=== PATIENT | female | born 1995 | race African-American/Black ===

== ENCOUNTER 2019-09-16 18:37 | Outpatient (CLI) | payer MEDICAID ==
[2019-09-16 19:19] VITALS: BP 96/60
[2019-09-16] MEDS ORDERED: LACTATED RINGERS 500 ML IV ONE (19:30)
== END 2019-09-16 19:33 | disposition home or self-care (01) ==
LOC: TRG 18:37
PROVIDERS: ATTEND Obstetrics & Gynecology
DX: O36.8120 Decreased fetal movements, second trimester, not applicable or unspecified (principal); O47.02 False labor before 37 completed weeks of gestation, second trimester; Z3A.23 23 weeks gestation of pregnancy
CPT/HCPCS: 99212; G0463

== ENCOUNTER 2019-10-27 13:30 | Outpatient (CLI) | payer MEDICAID ==
[2019-10-27 14:48] VITALS: BP 105/56
[2019-10-27] MEDS ORDERED: LACTATED RINGERS 1,000 ML ONE (15:08)
[2019-10-27] MEDS ORDERED: LACTATED RINGERS 1,000 ML IV ONE (15:20)
[2019-10-27 16:14] LABS: Hematocrit 32.1 % (30.3-42.9); Hemoglobin 10.9 gm/dl (10.1-14.3); Mean Corpuscular HGB Conc 34 % (30-34); Mean Corpuscular Volume 92 fl (79-97); Platelet Count 278 K/mm3 (140-440); Red Cell Distribution Width 12.2 % (13.2-15.2)
[2019-10-27 16:15] LABS: Bilirubin,Urine NEG (Negative); Blood,Urine NEG (Negative); Color,Urine Straw (Yellow); Protein,Urine <15 mg/dL mg/dL (Negative); RBC,Urine < 1.0 /HPF (0.0-6.0); Urobilinogen,Urine < 2.0 mg/dL (<2.0); WBC,Urine < 1.0 /HPF (0.0-6.0)
[2019-10-27 16:21] LABS: Amphetamine Screen,Urine PRESUMPTIVE NEGATIVE; Benzodiazepines Screen,Urine PRESUMPTIVE NEGATIVE; Cannabinoid Screen,Urine PRESUMPTIVE NEGATIVE; Cocaine Screen,Urine PRESUMPTIVE NEGATIVE; Methadone Screen,Urine PRESUMPTIVE NEGATIVE; Opiate Screen,Urine PRESUMPTIVE NEGATIVE
[2019-10-27 16:31] LABS: Alanine Aminotransferase 12 units/L (7-56); Albumin 3.5 g/dL (3.9-5); BUN/Creatinine Ratio 20; Blood Urea Nitrogen 6 mg/dL (7-17); Calcium 8.9 mg/dL (8.4-10.2); Hemolysis Index 15
[2019-10-27] MEDS ORDERED: LACTATED RINGERS 500 ML IV ONE (17:06)
[2019-10-27] MEDS: TERBUTALINE 1 MG/1 ML INJ SUB-Q SCH ×3 (17:30→18:25)
--- NOTE | 2019-10-27 18:28 | Ultrasound Report ---
ULTRASOUND BIOPHYSICAL PROFILE INDICATION / CLINICAL INFORMATION: BPP. COMPARISON: None available. FINDINGS: BREATHING MOVEMENT = 2 GROSS BODY MOVEMENT = 2 TONE = 2 QUALITATIVE AMNIOTIC FLUID VOLUME = 2 TOTAL BIOPHYSICAL SCORE = 8/8 BPD = 7.8 cm = 31 weeks, 2 day(s). Head circumference = 28.9 cm = 31 weeks, 6 day(s). Abdominal circumference = 24.8 cm = 29 weeks, 0 day(s). Femur length = 5.3 cm = 28 weeks, 0 day(s). Overall estimated sonographic age = 30 weeks, 0 day(s). heart rate is 144 beats per minute. Estimated weight is 1334 grams position is cephalic. Cervix appears closed. movement is present. Placenta is anterior and grade 1 . Amniotic fluid volume appears normal. Amniotic fluid index measures 10.4 cm IMPRESSION: 1. biophysical profile = 8/8 2. Estimated sonographic age of 30 weeks and 0 days. Signer Name: Gonzalo Richard MD Signed: 10/27/2019 6:23 PM Workstation Name: [id number]
== END 2019-10-27 19:33 | disposition home or self-care (01) ==
LOC: TRG 13:30
PROVIDERS: ATTEND Obstetrics & Gynecology
DX: O21.2 Late vomiting of pregnancy (principal); O26.893 Other specified pregnancy related conditions, third trimester; R51 Headache; O47.03 False labor before 37 completed weeks of gestation, third trimester; O99.013 Anemia complicating pregnancy, third trimester; D64.9 Anemia, unspecified; Z3A.29 29 weeks gestation of pregnancy
CPT/HCPCS: 36415; 76816; 76819; 80053; 80307; 81001; 85027; 87086; 96372; J3105; J7120

== ENCOUNTER 2019-10-28 14:40 | Inpatient (IN) | payer MEDICAID ==
[2019-10-28] MEDS ORDERED: NIFEdipine*For Tocolysis only* 10 MG CAPSULE PO ONE (17:00)
[2019-10-28] MEDS ORDERED: LACTATED RINGERS 500 ML IV ONE (17:00)
[2019-10-28] MEDS: LACTATED RINGERS 1,000 ML IV SCH (18:22)
--- NOTE | 2019-10-28 19:09 | History and Physical Report ---
History of Present Illness Date of examination: 10/28/19 Date of admission: 10/28/19 16:33 Chief complaint: Contractions History of present illness: 24 year old presents to L&D complaining of contractions. Patient denies leaking of fluid or vaginal bleeding. Patient reports active movement. Patient denies falls or abdominal trauma. Patient states she last had sexual intercourse 3 days ago. Patient denies any vaginal discharge or exposure to STDs. Patient denies urinary symptoms or back or flank pain. Patient was admitted by Dr. Plunkett for observation due to contractions. All orders and management of patient per Dr. Plunkett. Patient states she receives care at [facility]. No records available in L&D. Patient states her EDC is 01/10/20. Patient received IV hydration and oral Procardia and contractions have spaced. Nurse checked patient in triage and states she is 1 cm dilated and 50 percent effaced and presenting part is high. Dr. Plunkett aware of + FFN (but patient had cervical exam in triage yesterday less than 24 hours from time this FFN was done). Per Dr. Plunkett orders, patient is to receive Procardia every 6 hours as needed for contractions, have fetus and uterine activity monitored continuously, and have cervical exam again tomorrow morning. Past History Past Medical History: no pertinent history Past Surgical History: no surgical history [employer] History: chlamydia (history of chlamydia prior to , treated and cured). denies: abnormal PAP smear, gonorrhea, hepatitis B, hepatitis C, herpes, HIV, syphilis, trichomonas Family/Genetic History: none Social history: single, full code, other (denies abuse). denies: smoking, alcohol abuse, prescription drug abuse, IV drug use - Obstetrical History Expected Date of Delivery: 01/10/20 Actual Gestation: 29 Week(s) 3 Day(s) : 2 Para: 0 Hx # Term Pregnancies: 0 Number of Pregnancies: 0 Spontaneous Abortions: 1 Induced : 0 Number of Living Children: 0 Medications and Allergies Allergies Allergy/AdvReac Type Severity Reaction Status Date / Time No Known Allergies Allergy Unverified 11/05/15 01:04 Home Medications Medication Instructions Recorded Confirmed Last Taken Type Vitamin 1 tab PO DAILY MDD 1 09/16/19 10/28/19 10/28/19 08:00 History 1 Ferrous Sulfate [Feosol 325 MG tab] 325 mg PO QDAY 10/28/19 10/28/19 10/28/19 08:00 History 325 mg Active Meds: Active Medications Lactated Ringer's (Lactated Ringers) 1,000 mls @ 125 mls/hr IV DIRECT JOHN Last Admin: 10/28/19 18:22 Dose: 125 mls/hr Documented by: Review of Systems All systems: negative (contractions) - Vital Signs Vital signs: Vital Signs Pulse Pulse Ox 86 97 10/28/19 17:23 10/28/19 17:23 Temp Pulse Resp BP Pulse Ox 102 H 96 10/28/19 19:00 10/28/19 19:00 - Physical Exam Abdomen: Positive: normal appearance, soft. Negative: distention, tenderness, guarding, rigidity Uterus: Positive: enlarged (S=D). Negative: tender Extremities: Positive: normal. Negative: tenderness, edema - Obstetrical FHR: category 1 FHR comments: AGA Uterine Contraction Monitor Mode: External Cervical Dilatation: 1 (Exam by RN upon admission) Cervical Effacement Percentage: 50 station: -3 Uterine Contraction Pattern: Irregular Uterine Contraction Intensity: Mild Results All other labs normal. Assessment and Plan A: at 29 weeks, 3 days gestation. contractions. P: Patient was admitted by Dr. Plunkett for observation. All orders and management to be per MD due to gestation. Per MD, Procardia 10 mg po every 6 hours as needed for contractions and recheck cervix tomorrow morning. Continuous EFM.
[2019-10-28] MEDS: NIFEdipine*For Tocolysis only* 10 MG CAPSULE PO PRN (23:39)
[2019-10-29] MEDS ORDERED: ACETAMINOPHEN 325 MG TAB PO ONE (05:15)
[2019-10-29] MEDS: NIFEdipine*For Tocolysis only* 10 MG CAPSULE PO PRN (05:36)
[2019-10-29] MEDS: LACTATED RINGERS 1,000 ML IV SCH (10:35)
[2019-10-29] MEDS ORDERED: MAGNESIUM SULFATE 4 GM/100 ML BAG IV ONE (12:24)
[2019-10-29] MEDS ORDERED: MAGNESIUM SULFATE 40GM/1000ML 40 GM/1,000 ML BAG IV SCH ×2 (13:00→15:00)
--- NOTE | 2019-10-29 13:03 | Consultation ---
History of Present Illness Consult date: 10/29/19 History of present illness: the patient is @ 29.4 weeks admitted iwth PTC now have stopped but patietn is 1-2 cm dilated Past History Past Medical History: no pertinent history Past Surgical History: no surgical history [employer] History: chlamydia (history of chlamydia prior to , treated and cured). denies: abnormal PAP smear, gonorrhea, hepatitis B, hepatitis C, her pes, HIV, syphilis, trichomonas Family/Genetic History: none - Obstetrical History : 2 Medications and Allergies Allergies Allergy/AdvReac Type Severity Reaction Status Date / Time No Known Allergies Allergy Unverified 11/05/15 01:04 Home Medications Medication Instructions Recorded Confirmed Last Taken Type Vitamin 1 tab PO DAILY MDD 1 09/16/19 10/28/19 10/28/19 08:00 History 1 Ferrous Sulfate [Feosol 325 MG tab] 325 mg PO QDAY 10/28/19 10/28/19 10/28/19 08:00 History 325 mg Active Meds: Active Medications Betamethasone Acet/Betameth SodPhos (Celestone Soluspan) 12 mg IM Q24H JOHN Stop: 10/30/19 13:01 Lactated Ringer's (Lactated Ringers) 1,000 mls @ 125 mls/hr IV DIRECT JOHN Last Admin: 10/29/19 10:35 Dose: 125 mls/hr Documented by: Magnesium Sulfate (Magnesium Sulfate 40gm/1000ml) 40 gm in 1,000 mls @ 25 mls/hr IV DIRECT JOHN Nifedipine (Procardia*For Tocolysis Only*) 10 mg PO Q6H PRN PRN Reason: contractions Last Admin: 10/29/19 05:36 Dose: 10 mg Documented by: Review of Systems Constitutional: no weight loss, no weight gain Eyes: normal appearance Cardiovascular: no chest pain, no orthopnea, no syncope Respiratory: no cough, no shortness of breath Gastrointestinal: no abdominal pain, no nausea, no vomiting - Vital Signs Vital signs: Vital Signs Pulse Pulse Ox 86 97 10/28/19 17:23 10/28/19 17:23 Temp Pulse Resp BP Pulse Ox 98.8 F 91 H 12 93/52 95 10/29/19 07:20 10/29/19 07:38 10/29/19 07:20 10/29/19 07:38 10/29/19 07:37 - Physical Exam Cardiovascular: Regular rate Lungs: Positive: Normal air movement Abdomen: Positive: normal appearance. Negative: soft, distention, tenderness Uterus: Negative: tender - Obstetrical FHR: category 1 Uterine Contraction Monitor Mode: External (no contractions now) Results All other labs normal. Assessment and Plan the patietn is G20 @ 29.4 weeks with dilation 1-2 cm and previous PTC, now have ceased - I would treat this patient as PTL as she vopices that she has had PTC over the last 3 days and in/out of triage - give beta course - Indocin 50mg 6 hours thru the steroid window - Mag fo [employer] [facility] 2g/hr x 12 hours -cont monitor now - if the patient is stable shorty afternoon potential for DC home - start GBS abx if starts to contract or change cervix - the patient appears stable at this time without active course - please call [facility] as needed
--- NOTE | 2019-10-29 14:28 | Progress Note ---
Assessment and Plan A: at 29 weeks, 4 days gestation. Cervical change from 1 cm to 2 cm. P: Spoke with Dr. Plunkett who gave the following orders: Full admit. Steroids for FLM. Magnesium Sulfate for neuroprotection. Continuous EFM. Discussed this plan with patient. Subjective - Subjective Date of service: 10/29/19 Principal diagnosis: at 29 weeks, 4 days gestation Interval history: Patient was admitted by Dr. Plunkett and observed overnight and received Procardia for contractions. Cervix examined at noon today; cervix had changed from 1 cm to 2 cm dialation. Patient's contractions have spaced. Patient denies leaking of fluid and vaginal bleeding. Patient reports active movement. Patient reports: movement normal, no new complaints, no loss of fluid, no vaginal bleeding, no contractions Objective - Vital Signs Vital Signs: Vital Signs - 12hr 10/29/19 10/29/19 10/29/19 07:20 07:37 07:38 Temperature 98.8 F Pulse Rate 91 H 91 H Respiratory 12 Rate Blood Pressure 93/52 O2 Sat by Pulse 95 Oximetry - Exam Abdomen: Present: normal appearance, soft. Absent: distention, tenderness, guarding, rigidity Uterus: Present: normal, fundal height above umbilicus. Absent: tenderness FHR: category 1 Uterine Contraction Monitor Mode: External Cervical Dilatation: 2 Cervical Effacement Percentage: 60 station: -2 Uterine Contraction Pattern: Absent Extremities: normal - Labs Labs: Laboratory Results - last 24 hr 10/28/19 16:17 Fibronectin Positive
[2019-10-29] MEDS: BETAMET ACET/BETAMET NA PH 6 MG/ML INJ 5 ML MDV IM SCH (14:41)
[2019-10-29 15:51] LABS: Basophils % (Auto) 0.2 % (0.0-1.8); Eosinophils % (Auto) 0.4 % (0.0-4.3); Hematocrit 30.3 % (30.3-42.9); Hemoglobin 10.1 gm/dl (10.1-14.3); Lymphocytes # (Auto) 1.5 K/mm3 (1.2-5.4); Lymphocytes % (Auto) 14.5 % (13.4-35.0); Mean Corpuscular HGB Conc 34 % (30-34); Mean Corpuscular Volume 93 fl (79-97); Monocytes # (Auto) 0.8 K/mm3 (0.0-0.8); Platelet Count 281 K/mm3 (140-440); Red Blood Count 3.26 M/mm3 (3.65-5.03); Red Cell Distribution Width 12.1 % (13.2-15.2)
[2019-10-29 16:16] LABS: Alanine Aminotransferase 12 units/L (7-56); Albumin 3.5 g/dL (3.9-5); BUN/Creatinine Ratio 10; Blood Urea Nitrogen 4 mg/dL (7-17); Calcium 8.6 mg/dL (8.4-10.2); Hemolysis Index 13
[2019-10-29] MEDS ORDERED: INDOMETHACIN 25 MG CAP PO SCH ×2 (18:39→23:00)
[2019-10-29] MEDS ORDERED: AMPICILLIN/NS 2 GM/100 ML 2 GM/100 ML BAG IV ONE (18:41)
[2019-10-29 19:06] LABS: Bilirubin,Urine NEG (Negative); Blood,Urine NEG (Negative); Color,Urine Straw (Yellow); Mucus,Urine FEW /HPF; Protein,Urine <15 mg/dL mg/dL (Negative); Urobilinogen,Urine < 2.0 mg/dL (<2.0)
[2019-10-29] MEDS: INDOMETHACIN 25 MG CAP PO SCH (19:09)
[2019-10-29 19:14] LABS: Amphetamine Screen,Urine PRESUMPTIVE NEGATIVE; Benzodiazepines Screen,Urine PRESUMPTIVE NEGATIVE; Cannabinoid Screen,Urine PRESUMPTIVE NEGATIVE; Cocaine Screen,Urine PRESUMPTIVE NEGATIVE; Methadone Screen,Urine PRESUMPTIVE NEGATIVE; Opiate Screen,Urine PRESUMPTIVE NEGATIVE
[2019-10-29] MEDS: AMPICILLIN/NS 1 GM/50 ML 1 GM/50 ML BAG IV SCH (23:11)
[2019-10-30] MEDS: INDOMETHACIN 25 MG CAP PO SCH ×4 (01:09→19:10)
[2019-10-30] MEDS: LACTATED RINGERS 1,000 ML IV SCH ×2 (01:15→14:54)
[2019-10-30] MEDS: AMPICILLIN/NS 1 GM/50 ML 1 GM/50 ML BAG IV SCH ×2 (03:02→07:26)
--- NOTE | 2019-10-30 13:43 | Progress Note ---
Assessment and Plan labor stable, continue routine antepartum care Blanca Rodriguez MD Subjective - Subjective Date of service: 10/30/19 Principal diagnosis: at 29 weeks, 5 days gestation Interval history: Patient doing well good social support FOB at bedside denies contractions SP steroidsx1, second dose today continue magnesium sulfate 24 hours after last dose and monitor GFM, no OB complaints at bedside Patient reports: movement normal, no new complaints, no loss of fluid, no vaginal bleeding, no contractions Objective - Vital Signs Vital Signs: Vital Signs - 12hr 10/30/19 10/30/19 10/30/19 01:44 01:49 01:54 Temperature Pulse Rate 82 81 83 Respiratory Rate Blood Pressure Blood Pressure [Left] O2 Sat by Pulse 96 96 97 Oximetry 10/30/19 10/30/19 10/30/19 01:59 02:04 02:06 Temperature Pulse Rate 92 H 79 75 Respiratory Rate Blood Pressure 84/50 Blood Pressure [Left] O2 Sat by Pulse 98 96 Oximetry 10/30/19 10/30/19 10/30/19 02:09 02:14 02:19 Temperature Pulse Rate 75 78 78 Respiratory Rate Blood Pressure Blood Pressure [Left] O2 Sat by Pulse 96 96 96 Oximetry 10/30/19 10/30/19 10/30/19 02:24 02:29 02:34 Temperature Pulse Rate 77 76 79 Respiratory Rate Blood Pressure Blood Pressure [Left] O2 Sat by Pulse 96 96 95 Oximetry 10/30/19 10/30/19 10/30/19 02:39 02:44 02:49 Temperature Pulse Rate 78 79 81 Respiratory Rate Blood Pressure Blood Pressure [Left] O2 Sat by Pulse 95 95 96 Oximetry 10/30/19 10/30/19 10/30/19 02:54 02:59 03:04 Temperature Pulse Rate 73 76 78 Respiratory Rate Blood Pressure Blood Pressure [Left] O2 Sat by Pulse 96 96 95 Oximetry 10/30/19 10/30/19 10/30/19 03:05 03:09 03:14 Temperature Pulse Rate 75 78 79 Respiratory Rate Blood Pressure 86/51 Blood Pressure [Left] O2 Sat by Pulse 96 96 Oximetry 10/30/19 10/30/19 10/30/19 03:19 03:24 03:29 Temperature Pulse Rate 76 79 78 Respiratory Rate Blood Pressure Blood Pressure [Left] O2 Sat by Pulse 95 95 96 Oximetry 10/30/19 10/30/19 10/30/19 03:34 03:39 03:44 Temperature Pulse Rate 75 74 77 Respiratory Rate Blood Pressure Blood Pressure [Left] O2 Sat by Pulse 96 96 96 Oximetry 10/30/19 10/30/19 10/30/19 03:49 03:54 03:59 Temperature Pulse Rate 81 80 84 Respiratory Rate Blood Pressure Blood Pressure [Left] O2 Sat by Pulse 95 96 95 Oximetry 10/30/19 10/30/19 10/30/19 04:04 04:05 04:09 Temperature Pulse Rate 84 83 82 Respiratory Rate Blood Pressure 86/54 Blood Pressure [Left] O2 Sat by Pulse 95 97 Oximetry 10/30/19 10/30/19 10/30/19 04:14 04:19 04:24 Temperature Pulse Rate 75 75 73 Respiratory Rate Blood Pressure Blood Pressure [Left] O2 Sat by Pulse 96 96 96 Oximetry 10/30/19 10/30/19 10/30/19 04:29 04:34 04:39 Temperature Pulse Rate 91 H 85 80 Respiratory Rate Blood Pressure Blood Pressure [Left] O2 Sat by Pulse 97 96 95 Oximetry 10/30/19 10/30/19 10/30/19 04:44 04:49 04:54 Temperature Pulse Rate 94 H 88 80 Respiratory Rate Blood Pressure Blood Pressure [Left] O2 Sat by Pulse 97 97 97 Oximetry 10/30/19 10/30/19 10/30/19 04:59 05:04 05:05 Temperature Pulse Rate 79 76 80 Respiratory Rate Blood Pressure 84/50 Blood Pressure [Left] O2 Sat by Pulse 95 95 Oximetry 10/30/19 10/30/19 10/30/19 05:09 05:14 05:19 Temperature Pulse Rate 78 84 79 Respiratory Rate Blood Pressure Blood Pressure [Left] O2 Sat by Pulse 97 98 97 Oximetry 10/30/19 10/30/19 10/30/19 05:24 05:29 05:34 Temperature Pulse Rate 87 80 74 Respiratory Rate Blood Pressure Blood Pressure [Left] O2 Sat by Pulse 96 96 96 Oximetry 10/30/19 10/30/19 10/30/19 05:39 05:44 05:49 Temperature Pulse Rate 84 77 85 Respiratory Rate Blood Pressure Blood Pressure [Left] O2 Sat by Pulse 95 96 96 Oximetry 10/30/19 10/30/19 10/30/19 05:54 05:59 06:00 Temperature 97.5 F L Pulse Rate 79 83 85 Respiratory 16 Rate Blood Pressure Blood Pressure 98/54 [Left] O2 Sat by Pulse 96 97 98 Oximetry 10/30/19 10/30/19 10/30/19 06:04 06:05 06:09 Temperature Pulse Rate 83 80 82 Respiratory Rate Blood Pressure 98/54 Blood Pressure [Left] O2 Sat by Pulse 98 98 Oximetry 10/30/19 10/30/19 10/30/19 06:14 06:19 06:24 Temperature Pulse Rate 76 81 80 Respiratory Rate Blood Pressure Blood Pressure [Left] O2 Sat by Pulse 97 98 96 Oximetry 10/30/19 10/30/19 10/30/19 06:29 06:34 06:39 Temperature Pulse Rate 84 72 71 Respiratory Rate Blood Pressure Blood Pressure [Left] O2 Sat by Pulse 94 96 96 Oximetry 10/30/19 10/30/19 10/30/19 06:44 06:49 06:54 Temperature Pulse Rate 74 74 73 Respiratory Rate Blood Pressure Blood Pressure [Left] O2 Sat by Pulse 95 95 96 Oximetry 10/30/19 10/30/19 10/30/19 06:59 07:04 07:06 Temperature Pulse Rate 76 78 76 Respiratory Rate Blood Pressure 88/53 Blood Pressure [Left] O2 Sat by Pulse 95 95 Oximetry 10/30/19 10/30/19 10/30/19 07:09 07:14 07:19 Temperature Pulse Rate 78 93 H 83 Respiratory Rate Blood Pressure Blood Pressure [Left] O2 Sat by Pulse 96 97 96 Oximetry 10/30/19 10/30/19 10/30/19 07:22 07:24 07:29 Temperature Pulse Rate 81 102 H 83 Respiratory Rate Blood Pressure 90/50 Blood Pressure [Left] O2 Sat by Pulse 96 97 Oximetry 10/30/19 10/30/19 10/30/19 07:34 07:37 07:39 Temperature 97.7 F Pulse Rate 77 93 H Respiratory Rate Blood Pressure Blood Pressure [Left] O2 Sat by Pulse 97 97 Oximetry 10/30/19 10/30/19 10/30/19 07:44 07:49 07:54 Temperature Pulse Rate 82 85 83 Respiratory Rate Blood Pressure Blood Pressure [Left] O2 Sat by Pulse 97 96 96 Oximetry 10/30/19 10/30/19 10/30/19 07:59 08:04 08:05 Temperature Pulse Rate 84 83 80 Respiratory Rate Blood Pressure 92/55 Blood Pressure [Left] O2 Sat by Pulse 97 98 Oximetry 10/30/19 10/30/19 10/30/19 08:09 08:14 08:19 Temperature Pulse Rate 80 84 80 Respiratory Rate Blood Pressure Blood Pressure [Left] O2 Sat by Pulse 97 96 96 Oximetry 10/30/19 10/30/19 10/30/19 08:24 08:29 08:34 Temperature Pulse Rate 85 80 80 Respiratory Rate Blood Pressure Blood Pressure [Left] O2 Sat by Pulse 96 96 97 Oximetry 10/30/19 10/30/19 10/30/19 08:39 08:44 08:49 Temperature Pulse Rate 83 82 84 Respiratory Rate Blood Pressure Blood Pressure [Left] O2 Sat by Pulse 96 96 95 Oximetry 10/30/19 10/30/19 10/30/19 08:54 08:59 09:04 Temperature Pulse Rate 84 85 85 Respiratory Rate Blood Pressure Blood Pressure [Left] O2 Sat by Pulse 95 95 96 Oximetry 10/30/19 10/30/19 10/30/19 09:05 09:09 09:14 Temperature Pulse Rate 82 82 89 Respiratory Rate Blood Pressure 87/49 Blood Pressure [Left] O2 Sat by Pulse 95 95 Oximetry 10/30/19 10/30/19 10/30/19 09:19 09:24 09:29 Temperature Pulse Rate 90 90 91 H Respiratory Rate Blood Pressure Blood Pressure [Left] O2 Sat by Pulse 95 96 97 Oximetry 10/30/19 10/30/19 10/30/19 09:34 09:39 09:44 Temperature Pulse Rate 92 H 88 87 Respiratory Rate Blood Pressure Blood Pressure [Left] O2 Sat by Pulse 97 97 96 Oximetry 10/30/19 10/30/19 10/30/19 09:49 09:54 09:59 Temperature Pulse Rate 98 H 97 H 95 H Respiratory Rate Blood Pressure Blood Pressure [Left] O2 Sat by Pulse 96 97 96 Oximetry 10/30/19 10/30/19 10/30/19 10:04 10:05 10:09 Temperature Pulse Rate 94 H 90 91 H Respiratory Rate Blood Pressure 88/49 Blood Pressure [Left] O2 Sat by Pulse 96 96 Oximetry 10/30/19 10/30/19 10/30/19 10:14 10:19 10:24 Temperature Pulse Rate 89 93 H 91 H Respiratory Rate Blood Pressure Blood Pressure [Left] O2 Sat by Pulse 97 96 96 Oximetry 10/30/19 10/30/19 10/30/19 10:29 10:34 10:39 Temperature Pulse Rate 91 H 87 95 H Respiratory Rate Blood Pressure Blood Pressure [Left] O2 Sat by Pulse 96 96 96 Oximetry 10/30/19 10/30/19 10/30/19 10:44 10:49 10:54 Temperature Pulse Rate 95 H 96 H 105 H Respiratory Rate Blood Pressure Blood Pressure [Left] O2 Sat by Pulse 96 96 96 Oximetry 10/30/19 10/30/19 10/30/19 10:59 11:04 11:05 Temperature Pulse Rate 94 H 83 83 Respiratory Rate Blood Pressure 90/50 Blood Pressure [Left] O2 Sat by Pulse 96 96 Oximetry 10/30/19 10/30/19 10/30/19 11:09 11:14 11:19 Temperature Pulse Rate 87 91 H 90 Respiratory Rate Blood Pressure Blood Pressure [Left] O2 Sat by Pulse 96 96 96 Oximetry 10/30/19 10/30/19 10/30/19 11:24 11:29 11:34 Temperature Pulse Rate 89 88 92 H Respiratory Rate Blood Pressure Blood Pressure [Left] O2 Sat by Pulse 96 95 96 Oximetry 10/30/19 10/30/19 10/30/19 11:39 11:44 11:49 Temperature Pulse Rate 89 89 84 Respiratory Rate Blood Pressure Blood Pressure [Left] O2 Sat by Pulse 96 96 96 Oximetry 10/30/19 10/30/19 10/30/19 11:54 11:59 12:04 Temperature Pulse Rate 89 86 86 Respiratory Rate Blood Pressure Blood Pressure [Left] O2 Sat by Pulse 96 96 95 Oximetry 10/30/19 10/30/19 10/30/19 12:05 12:09 12:14 Temperature Pulse Rate 87 87 82 Respiratory Rate Blood Pressure 90/54 Blood Pressure [Left] O2 Sat by Pulse 96 95 Oximetry 10/30/19 10/30/19 10/30/19 12:19 12:24 12:29 Temperature Pulse Rate 83 81 79 Respiratory Rate Blood Pressure Blood Pressure [Left] O2 Sat by Pulse 95 94 95 Oximetry 10/30/19 10/30/19 10/30/19 12:34 12:39 12:44 Temperature Pulse Rate 93 H 89 91 H Respiratory Rate Blood Pressure Blood Pressure [Left] O2 Sat by Pulse 96 96 96 Oximetry 10/30/19 10/30/19 10/30/19 12:49 12:54 12:59 Temperature Pulse Rate 86 83 91 H Respiratory Rate Blood Pressure Blood Pressure [Left] O2 Sat by Pulse 95 95 96 Oximetry 10/30/19 10/30/19 10/30/19 13:04 13:05 13:09 Temperature Pulse Rate 85 85 86 Respiratory Rate Blood Pressure 70/35 Blood Pressure [Left] O2 Sat by Pulse 95 96 Oximetry 10/30/19 10/30/19 10/30/19 13:14 13:19 13:24 Temperature Pulse Rate 90 87 85 Respiratory Rate Blood Pressure Blood Pressure [Left] O2 Sat by Pulse 96 95 95 Oximetry 10/30/19 10/30/19 10/30/19 13:29 13:34 13:39 Temperature Pulse Rate 85 85 84 Respiratory Rate Blood Pressure Blood Pressure [Left] O2 Sat by Pulse 95 95 95 Oximetry - Exam Breasts: deferred, normal, change in shape Cardiovascular: Regular rate Lungs: Clear to auscultation Abdomen: Present: normal appearance, normal bowel sounds Uterus: Present: normal FHR: category 1 Uterine Contraction Pattern: Irregular Uterine Tone Measurement Phase: Resting Uterine Contraction Intensity: Mild Extremities: normal - Labs Labs: Abnormal Labs 10/29/19 10/29/19 10/29/19 15:31 15:31 18:48 RBC 3.26 L RDW 12.1 L Y[place]y % (Auto) 8.0 H Seg Neutrophils % 76.9 H Seg Neutrophils # 7.8 H Carbon Dioxide 20 L BUN 4 L Creatinine 0.4 L Magnesium Albumin 3.5 L Urine pH 8.0 H 10/29/19 10/30/19 10/30/19 19:31 00:37 07:12 RBC RDW [place]y % (Auto) Seg Neutrophils % Seg Neutrophils # Carbon Dioxide BUN Creatinine Magnesium 5.00 H 5.60 H 6.00 H Albumin Urine pH Laboratory Results - last 24 hr 10/29/19 10/29/19 10/29/19 15:31 15:31 15:40 WBC 10.2 RBC 3.26 L Hgb 10.1 Hct 30.3 MCV 93 MCH 31 MCHC 34 RDW 12.1 L Plt Count 281 Lymph % (Auto) 14.5 Yancey % (Auto) 8.0 H Eos % (Auto) 0.4 Baso % (Auto) 0.2 Lymph # 1.5 Yancey # 0.8 Eos # 0.0 Baso # 0.0 Seg Neutrophils % 76.9 H Seg Neutrophils # 7.8 H Sodium 137 Potassium 4.1 Chloride 104.5 Carbon Dioxide 20 L Anion Gap 17 BUN 4 L Creatinine 0.4 L Estimated GFR > 60 BUN/Creatinine Ratio 10 Glucose 92 Calcium 8.6 Magnesium Total Bilirubin 0.20 AST 19 ALT 12 Alkaline Phosphatase 72 Total Protein 6.8 Albumin 3.5 L Albumin/Globulin Ratio 1.1 Urine Color Urine Turbidity Urine pH Ur Specific [place] Urine Protein Urine Glucose (UA) Urine Ketones Urine Blood Urine Nitrite Urine Bilirubin Urine Urobilinogen Ur Leukocyte Esterase Urine WBC (Auto) Urine RBC (Auto) Urine Mucus Urine Opiates Screen Urine Methadone Screen Ur Barbiturates Screen Ur Phencyclidine Scrn Ur Amphetamines Screen U Benzodiazepines Scrn Urine Cocaine Screen U Marijuana (THC) Screen Drugs of Abuse Note Blood Type B POSITIVE Antibody Screen Negative 10/29/19 10/29/19 10/29/19 18:48 18:48 19:31 WBC RBC Hgb Hct MCV MCH MCHC RDW Plt Count Lymph % (Auto) [place] % (Auto) Eos % (Auto) Baso % (Auto) Lymph # [place] # Eos # Baso # Seg Neutrophils % Seg Neutrophils # Sodium Potassium Chloride Carbon Dioxide Anion Gap BUN Creatinine Estimated GFR BUN/Creatinine Ratio Glucose Calcium Magnesium 5.00 H Total Bilirubin AST ALT Alkaline Phosphatase Total Protein Albumin Albumin/Globulin Ratio Urine Color Straw Urine Turbidity Clear Urine pH 8.0 H Ur Specific [place] 1.009 Urine Protein <15 mg/dl Urine Glucose (UA) Neg Urine Ketones Neg Urine Blood Neg Urine Nitrite Neg Urine Bilirubin Neg Urine Urobilinogen < 2.0 Ur Leukocyte Esterase Neg Urine WBC (Auto) 2.0 Urine RBC (Auto) 8.0 Urine Mucus Few Urine Opiates Screen Presumptive negative Urine Methadone Screen Presumptive negative Ur Barbiturates Screen Presumptive negative Ur Phencyclidine Scrn Presumptive negative Ur Amphetamines Screen Presumptive negative U Benzodiazepines Scrn Presumptive negative Urine Cocaine Screen Presumptive negative U Marijuana (THC) Screen Presumptive negative Drugs of Abuse Note Disclamer Blood Type Antibody Screen 10/30/19 10/30/19 00:37 07:12 WBC RBC Hgb Hct MCV MCH MCHC RDW Plt Count Lymph % (Auto) [place] % (Auto) Eos % (Auto) Baso % (Auto) Lymph # [place] # Eos # Baso # Seg Neutrophils % Seg Neutrophils # Sodium Potassium Chloride Carbon Dioxide Anion Gap BUN Creatinine Estimated GFR BUN/Creatinine Ratio Glucose Calcium Magnesium 5.60 H 6.00 H Total Bilirubin AST ALT Alkaline Phosphatase Total Protein Albumin Albumin/Globulin Ratio Urine Color Urine Turbidity Urine pH Ur Specific [place] Urine Protein Urine Glucose (UA) Urine Ketones Urine Blood Urine Nitrite Urine Bilirubin Urine Urobilinogen Ur Leukocyte Esterase Urine WBC (Auto) Urine RBC (Auto) Urine Mucus Urine Opiates Screen Urine Methadone Screen Ur Barbiturates Screen Ur Phencyclidine Scrn Ur Amphetamines Screen U Benzodiazepines Scrn Urine Cocaine Screen U Marijuana (THC) Screen Drugs of Abuse Note Blood Type Antibody Screen
[2019-10-30] MEDS: BETAMET ACET/BETAMET NA PH 6 MG/ML INJ 5 ML MDV IM SCH (14:48)
[2019-10-31] MEDS: INDOMETHACIN 25 MG CAP PO SCH ×2 (01:02→08:27)
[2019-10-31] MEDS: LACTATED RINGERS 1,000 ML IV SCH ×2 (03:29→12:00)
[2019-10-31 11:06] VITALS: BP 89/53
--- NOTE | 2019-10-31 12:55 | Discharge Summary ---
Providers - Providers Date of Admission: 10/29/19 14:23 Date of discharge: 10/31/19 Attending physician: CLAUDY JEFF Was seen by [facility]. Primary care physician: CLAUDY JEFF Hospitalization Reason for admission: observation, labor Discharge diagnosis: other (IUP at 29+6weeks.) Condition at discharge: Good Disposition: [id number]-01 TO HOME OR SELFCARE Plan - Provider Discharge Summary Additional instructions: [] Smoking cessation referral if applicable(refer to patient education folder for contact #) [] Refer to [facility] Booklet Call your doctor immediately for: * Fever > 100.5 * Heavy vaginal bleeding ( >1 pad per hour) * Severe persistent headache * Shortness of breath * Reddened, hot, painful area to leg or breast * Drainage or odor from incision. * Keep incision clean and dry at all times and follow doctor's instructions regarding bathing/showering - Follow up plan Follow up: CLAUDY JEFF MD [Primary Care Provider] - 7 Days
== END 2019-10-31 16:12 | disposition home or self-care (01) | DRG 778 ==
LOC: TRG 14:40 → LD 16:33 → OBSVTOIN 10-29 14:23
PROVIDERS: ADMIT Obstetrics & Gynecology; ATTEND Obstetrics & Gynecology
DX: O60.02 Preterm labor without delivery, second trimester (principal); Z3A.29 29 weeks gestation of pregnancy
CPT/HCPCS: 36415; 76816; 76819; 80053; 80307; 81001; 82731; 83735; 85025; 85027; 86850; 86900; 86901; 87086; 96372; G0378; J0290; J0702; J3105; J3475; J7120

== ENCOUNTER 2019-11-02 16:28 | Outpatient (CLI) | payer MEDICAID ==
[2019-11-02] MEDS ORDERED: LACTATED RINGERS 500 ML IV ONE (18:08)
[2019-11-02 18:18] VITALS: BP 101/60
[2019-11-02 18:45] LABS: Bilirubin,Urine NEG (Negative); Blood,Urine NEG (Negative); Color,Urine Yellow (Yellow); Mucus,Urine FEW /HPF; Protein,Urine <15 mg/dL mg/dL (Negative); Urobilinogen,Urine < 2.0 mg/dL (<2.0)
== END 2019-11-02 19:42 | disposition home or self-care (01) ==
LOC: TRG 16:28
PROVIDERS: ATTEND Obstetrics & Gynecology
DX: O47.03 False labor before 37 completed weeks of gestation, third trimester (principal); Z3A.30 30 weeks gestation of pregnancy
CPT/HCPCS: 81001

== ENCOUNTER 2019-12-26 13:03 | Outpatient (CLI) | payer MEDICAID ==
[2019-12-26] MEDS ORDERED: NITRAZINE (URINE TESTING PAPER) MC ONE (13:18)
[2019-12-26 13:35] VITALS: BP 110/70
[2019-12-26] MEDS ORDERED: LACTATED RINGERS 1,000 ML IV SCH (14:00)
== END 2019-12-26 14:27 | disposition home or self-care (01) ==
LOC: TRG 13:03
PROVIDERS: ATTEND Obstetrics & Gynecology
DX: O42.92 Full-term premature rupture of membranes, unspecified as to length of time between rupture and onset of labor (principal); Z3A.37 37 weeks gestation of pregnancy
CPT/HCPCS: 59025